=== PATIENT | male | born 1980 | race American Indian/Alaskan Native ===

== ENCOUNTER 2020-10-18 08:07 | Emergency (ER) | payer OTHER ==
[2020-10-18] MEDS ORDERED: Lidocaine 1% 20 ML MDV INFILT ONE (08:08)
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
[2020-10-18] MEDS ORDERED: Sodium Chloride 0.9% 1,000 ML IV ONE ×2 (09:37→11:20)
[2020-10-18] MEDS ORDERED: HYDROmorphone 2 MG/ML SDV IVPUSH ONE ×2 (09:37→10:50)
[2020-10-18] MEDS ORDERED: Ondansetron 4 MG/2 ML SDV IVPUSH ONE (09:38)
[2020-10-18] MEDS ORDERED: Iopamidol 755 MG/ML 150 ML Bottle IV ONE (09:42)
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
== END 2020-10-18 11:39 ==
LOC: FB.ED 08:07
DX: S31.131A Puncture wound of abdominal wall without foreign body, left upper quadrant without penetration into peritoneal cavity, initial encounter (principal); S31.111A Laceration without foreign body of abdominal wall, left upper quadrant without penetration into peritoneal cavity, initial encounter; W26.8XXA Contact with other sharp object(s), not elsewhere classified, initial encounter
CPT/HCPCS: 12002; 36415; 74019; 74177; 80053; 80307; 85027; 96374; 96375; 96376; 99285; J1170; J2405; J7030; Q9967

== ENCOUNTER 2023-04-17 14:43 | Emergency (ER) | payer OTHER ==
[2023-04-17] MEDS: Ibuprofen 800 MG Tab PO ONE (15:25)
[2023-04-17] MEDS: Acetaminophen 500 MG Tab PO ONE (15:25)
[2023-04-17 15:41] LABS: INFLUENZA A NAA NEGATIVE (NEGATIVE); INFLUENZA B NAA POSITIVE (NEGATIVE)
[2023-04-17 15:43] LABS: CORONAVIRUS COVID-19 NAA NEGATIVE (NEGATIVE)
[2023-04-17] MEDS: Oseltamivir 75 MG Cap PO ONE (16:03)
== END 2023-04-17 16:23 | disposition home or self-care (01) ==
LOC: FB.ED 14:43
DX: J10.1 Influenza due to other identified influenza virus with other respiratory manifestations (principal); A08.4 Viral intestinal infection, unspecified; Z86.16 Personal history of COVID-19
CPT/HCPCS: 0240U; 99284; A9270-GY

== ENCOUNTER 2024-09-20 08:35 | Emergency (ER) | payer MEDICAID | END 2024-09-20 10:10 | disposition home or self-care (01) | LOC: FB.ED 08:35 | DX: S01.412A Laceration without foreign body of left cheek and temporomandibular area, initial encounter (principal); S01.81XA Laceration without foreign body of other part of head, initial encounter; Z79.899 Other long term (current) drug therapy; Z86.16 Personal history of COVID-19; W26.8XXA Contact with other sharp object(s), not elsewhere classified, initial encounter; Y93.89 Activity, other specified | CPT/HCPCS: 12013; 99282; J2003 ==

== ENCOUNTER 2024-12-10 02:50 | Emergency (ER) | payer MEDICAID | END 2024-12-10 03:09 | LOC: FB.ED 02:50 | DX: I10 Essential (primary) hypertension (principal); Z91.0110 Allergy to milk products, unspecified; Z91.013 Allergy to seafood; Z86.16 Personal history of COVID-19 | CPT/HCPCS: 99283 ==